=== PATIENT | male | born 1995 | race Two or more races ===

== ENCOUNTER → 2016-04-06 | Outpatient (REF) | payer BC ==
[2016-04-06 11:59] LABS: ANION GAP 7 MEQ/L (8-16); BLOOD UREA NITROGEN 11 MG/DL (7-18); CALCIUM LEVEL 9.2 MG/DL (8.5-10.1); CARBON DIOXIDE LEVEL 30 MEQ/L (21-32); CHLORIDE LEVEL 105 MEQ/L (98-107); CREATININE FOR GFR 0.85 MG/DL (0.70-1.30); GLOMERULAR FILTRATION RATE > 60.0 (>60); GLUCOSE, FASTING 156 MG/DL (70-105); POTASSIUM SERUM 4.3 MEQ/L (3.5-5.1); SODIUM LEVEL 142 MEQ/L (136-145)
== END ==
LOC: M SFHCPLAZ 08:51
PROVIDERS: ATTEND Family Medicine
DX: E10.3299 Type 1 diabetes mellitus with mild nonproliferative diabetic retinopathy without macular edema, unspecified eye (principal); F17.200 Nicotine dependence, unspecified, uncomplicated; Z23 Encounter for immunization

== ENCOUNTER → 2016-06-22 | Outpatient (REF) | payer BC | LOC: M SFHCPLAZ 09:19 | PROVIDERS: ATTEND Family Medicine | DX: E10.3292 Type 1 diabetes mellitus with mild nonproliferative diabetic retinopathy without macular edema, left eye (principal) ==

== ENCOUNTER → 2017-03-12 | Outpatient (REF) | payer BC ==
[2017-03-12 21:43] LABS: CALCIUM OXALATE CRYSTALS SMALL
== END ==
LOC: M LAB REF 12:43
PROVIDERS: ATTEND Physician Assistant
DX: R30.0 Dysuria (principal)

== ENCOUNTER 2017-06-17 20:24 | Emergency (ER) | payer BC ==
[2017-06-17] MEDS: ONDANSETRON 4MG/2ML VIAL (J2405) IV (20:49)
[2017-06-17] MEDS: MORPHINE 4 MG/ML 1ML VIAL (J2270) IV (20:50)
[2017-06-17] MEDS: KETOROLAC 30 MG/ML VIAL (J1885) IV (20:50)
[2017-06-17] MEDS: SILVER SULFADIAZINE 1% CR 50 GM JAR TOP (21:19)
[2017-06-17] MEDS: OXYCODONE/APAP 5MG/325MG(BULK FOR ED) 1 TABLET PO (21:27)
== END 2017-06-17 21:41 | disposition home or self-care (01) ==
LOC: M ED 20:24
DX: T23.101A Burn of first degree of right hand, unspecified site, initial encounter (principal); T23.271A Burn of second degree of right wrist, initial encounter; X10.2XXA Contact with fats and cooking oils, initial encounter; Y92.090 Kitchen in other non-institutional residence as the place of occurrence of the external cause; E10.9 Type 1 diabetes mellitus without complications; F17.200 Nicotine dependence, unspecified, uncomplicated
CPT/HCPCS: J2270

== ENCOUNTER → 2018-01-31 | Outpatient (CLI) | payer BC | LOC: M OUTALCOH 08:24 | DX: Z03.89 Encounter for observation for other suspected diseases and conditions ruled out (principal) ==

== ENCOUNTER 2018-02-07 09:57 | Outpatient (RCR) | payer BC | END 2018-02-17 | LOC: M OUTALCOH 09:57 | DX: Z03.89 Encounter for observation for other suspected diseases and conditions ruled out (principal) ==

== ENCOUNTER → 2018-10-03 | Outpatient (REF) | payer BC ==
[~2018-10-03] MED LIST: CLEO300C2 PO; INSUHUMDS; INSULANT; PERC5TAB12 PO; SILV1CRE60 TOP
[2018-10-03 16:03] LABS: BLOOD UREA NITROGEN 7 MG/DL (7-18); CALCIUM LEVEL 9.1 MG/DL (8.5-10.1); CARBON DIOXIDE LEVEL 28 MEQ/L (21-32); CHLORIDE LEVEL 106 MEQ/L (98-107); CREATININE FOR GFR 1.02 MG/DL (0.70-1.30); GLOMERULAR FILTRATION RATE > 60.0 (>60); GLUCOSE, FASTING 193 MG/DL (70-100); SODIUM LEVEL 139 MEQ/L (136-145)
[2018-10-03 16:15] LABS: VITAMIN B12 LEVEL 460 PG/ML (247-911)
[2018-10-03 17:05] LABS: MALB URINE SIEMENS 23.4 MG/L; MAU/CREAT RATIO 4.4 MCG/MG (0.0-30.0)
[2018-10-03 18:14] LABS: HEMOGLOBIN A1c 7.5 %
== END ==
LOC: M SFHCPLAZ 13:44
PROVIDERS: ATTEND Family Medicine
DX: E10.3299 Type 1 diabetes mellitus with mild nonproliferative diabetic retinopathy without macular edema, unspecified eye (principal); G62.9 Polyneuropathy, unspecified

== ENCOUNTER → 2019-02-05 | Outpatient (REF) | payer BC ==
[2019-02-05 18:20] LABS: ALBUMIN 4.1 GM/DL (3.2-5.2); ALT/SGPT 35 U/L (12-78); BILIRUBIN,TOTAL 0.6 MG/DL (0.2-1.0); BLOOD UREA NITROGEN 11 MG/DL (7-18); CALCIUM LEVEL 9.5 MG/DL (8.5-10.1); CARBON DIOXIDE LEVEL 31 MEQ/L (21-32); CHLORIDE LEVEL 97 MEQ/L (98-107); CREATININE FOR GFR 1.09 MG/DL (0.70-1.30); GLOMERULAR FILTRATION RATE > 60.0 (>60); GLUCOSE, FASTING 436 MG/DL (70-100); POTASSIUM SERUM 5.1 MEQ/L (3.5-5.1); SODIUM LEVEL 134 MEQ/L (136-145); TOTAL PROTEIN 7.4 GM/DL (6.4-8.2)
[2019-02-05 18:44] LABS: CREATININE, URINE 70.3 MG/DL; MALB URINE SIEMENS < 5.0 MG/L; MAU/CREAT RATIO 7.1 MCG/MG (0.0-30.0)
[2019-02-05 19:21] LABS: HEMOGLOBIN A1c 8.1 %
== END ==
LOC: M SFHCPLAZ 15:15
PROVIDERS: ATTEND Physician Assistant
DX: E10.65 Type 1 diabetes mellitus with hyperglycemia (principal)

== ENCOUNTER → 2020-02-28 | Outpatient (REF) | payer BC ==
[2020-02-28 15:48] LABS: BLOOD UREA NITROGEN 11 MG/DL (7-18); CALCIUM LEVEL 9.3 MG/DL (8.5-10.1); CARBON DIOXIDE LEVEL 31 MEQ/L (21-32); CHLORIDE LEVEL 108 MEQ/L (98-107); CREATININE FOR GFR 0.87 MG/DL (0.70-1.30); GLOMERULAR FILTRATION RATE > 60.0 (>60); GLUCOSE, FASTING 93 MG/DL (70-100); POTASSIUM SERUM 4.2 MEQ/L (3.5-5.1); SODIUM LEVEL 141 MEQ/L (136-145)
[2020-02-28 15:56] LABS: HEMOGLOBIN A1c 7.6 %
== END ==
LOC: M PLALAB 13:27
PROVIDERS: ATTEND Physician Assistant
DX: E10.3299 Type 1 diabetes mellitus with mild nonproliferative diabetic retinopathy without macular edema, unspecified eye (principal)

== ENCOUNTER → 2020-04-21 | Outpatient (REF) | payer BC | LOC: EEVIPCON 09:53 → M SFHCPLAZ 09:53 | PROVIDERS: ATTEND Physician Assistant | DX: L02.213 Cutaneous abscess of chest wall (principal) ==

== ENCOUNTER → 2020-07-04 | Outpatient (CLI) | payer BC | LOC: M LABSMTC 12:26 | PROVIDERS: ATTEND Family Medicine | DX: Z20.822 Contact with and (suspected) exposure to COVID-19 (principal) | CPT/HCPCS: C9803; U0003 ==

== ENCOUNTER → 2020-10-07 | Outpatient (CLI) | payer BC ==
[2020-10-07 17:01] LABS: MALB URINE SIEMENS 17.2 MG/L; MAU/CREAT RATIO 5.6 MCG/MG (0.0-30.0)
[2020-10-07 17:04] LABS: ALBUMIN 4.2 GM/DL (3.2-5.2); ALT/SGPT 31 U/L (12-78); BILIRUBIN,TOTAL 0.8 MG/DL (0.2-1.0); BLOOD UREA NITROGEN 13 MG/DL (7-18); CALCIUM LEVEL 9.2 MG/DL (8.5-10.1); CARBON DIOXIDE LEVEL 30 MEQ/L (21-32); CHLORIDE LEVEL 105 MEQ/L (98-107); CHOLESTEROL LEVEL 173 MG/DL (<200); CHOLESTEROL RISK RATIO 2.621 (<5); CREATININE FOR GFR 0.87 MG/DL (0.70-1.30); GLOMERULAR FILTRATION RATE > 60.0 (>60); GLUCOSE, FASTING 214 MG/DL (70-100); HDL CHOLESTEROL 66 MG/DL (>40); LDL CHOLESTEROL 95 MG/DL (<100); NON-HDL-C 107 MG/DL; POTASSIUM SERUM 4.4 MEQ/L (3.5-5.1); SODIUM LEVEL 138 MEQ/L (136-145); TOTAL PROTEIN 7.2 GM/DL (6.4-8.2); TRIGLYCERIDES LEVEL 58 MG/DL (<150)
[2020-10-07 17:29] LABS: HEMOGLOBIN A1c 7.8 %
== END ==
LOC: M PLALAB 12:01
PROVIDERS: ATTEND Physician Assistant
DX: E10.65 Type 1 diabetes mellitus with hyperglycemia (principal)

== ENCOUNTER → 2022-04-05 | Outpatient (CLI) | payer BC ==
[2022-04-05 17:43] LABS: HEMATOCRIT 47.8 % (42.0-52.0); HEMOGLOBIN 15.3 g/dl (13.5-17.5); MEAN CORPUSCULAR VOLUME 84.5 fl (80.0-96.0); PLATELET COUNT, AUTOMATED 224 10^3/uL (150-450); RED BLOOD COUNT 5.66 10^6/uL (4.30-6.10); WHITE BLOOD COUNT 4.2 10^3/uL (4.0-10.0)
[2022-04-05 17:59] LABS: HEMOGLOBIN A1c 9.7 % (4.0-6.0)
[2022-04-05 18:16] LABS: C REACTIVE PROTEIN QUANTITATIV < 0.40 MG/DL (<1.0); FREE T4 1.19 NG/DL (0.89-1.76); THYROID STIMULATING HORMONE 0.515 uIU/ML (0.55-4.78)
[2022-04-05 18:17] LABS: ALBUMIN 3.9 G/DL (3.2-5.2); ALKALINE PHOSPHATASE 87 U/L (46-116); ALT/SGPT 21 U/L (7.0-40); AST/SGOT 14 U/L (<34); BILIRUBIN,TOTAL 0.7 MG/DL (0.3-1.2); BLOOD UREA NITROGEN 11 MG/DL (9-23); CALCIUM LEVEL 9.1 MG/DL (8.5-10.1); CARBON DIOXIDE LEVEL 29 MMOL/L (20-31); CHLORIDE LEVEL 105 MMOL/L (98-107); CHOLESTEROL LEVEL 153 MG/DL (<200); CHOLESTEROL RISK RATIO 2.52 (<5); GLOMERULAR FILTRATION RATE > 60.0 (>60); GLUCOSE, FASTING 151 MG/DL (60-100); HDL CHOLESTEROL 60.6 MG/DL (>40); NON-HDL-C 92 MG/DL; POTASSIUM SERUM 4.5 MMOL/L (3.5-5.1); SODIUM LEVEL 141 MMOL/L (136-145); TOTAL 25(OH) VITAMIN D 17.3 NG/ML (20.0-100.0); TOTAL PROTEIN 6.5 G/DL (5.7-8.2); TRIGLYCERIDES LEVEL 27 MG/DL (<150)
[2022-04-05 18:18] LABS: VITAMIN B12 LEVEL 760 PG/ML (211-911)
[2022-04-05 18:25] LABS: CREATININE, URINE 254.9 MG/DL; MAU/CREAT RATIO 2.3 MCG/MG (0.0-30.0)
== END ==
LOC: M PLALAB 14:14
PROVIDERS: ATTEND Internal Medicine Hematology
DX: E10.65 Type 1 diabetes mellitus with hyperglycemia (principal)

== ENCOUNTER → 2023-07-07 | Outpatient (CLI) | payer BC, SELFPAY ==
[2023-07-07 15:49] LABS: HEMATOCRIT 43.9 % (42.0-52.0); HEMOGLOBIN 14.2 g/dl (13.5-17.5); MEAN CORPUSCULAR HEMOGLOBIN 27.6 pg (27.0-33.0); MEAN CORPUSCULAR HGB CONC 32.3 g/dl (32.0-36.5); MEAN CORPUSCULAR VOLUME 85.4 fl (80.0-96.0); PLATELET COUNT, AUTOMATED 219 10^3/uL (150-450); RED BLOOD COUNT 5.14 10^6/uL (4.30-6.10); WHITE BLOOD COUNT 6.9 10^3/uL (4.0-10.0)
[2023-07-07 16:09] LABS: HEMOGLOBIN A1c 9.4 % (4.0-6.0)
[2023-07-07 16:17] LABS: CREATININE, URINE 96.9 MG/DL; MALB URINE SIEMENS < 3.0 MG/L
[2023-07-07 16:18] LABS: C REACTIVE PROTEIN QUANTITATIV < 0.40 MG/DL (<1.0)
[2023-07-07 16:19] LABS: ALBUMIN 3.7 G/DL (3.2-5.2); ALKALINE PHOSPHATASE 82 U/L (46-116); ALT/SGPT 11 U/L (7.0-40); AST/SGOT 11 U/L (<34); BILIRUBIN,TOTAL 0.5 MG/DL (0.3-1.2); BLOOD UREA NITROGEN 11 MG/DL (9-23); CALCIUM LEVEL 9.5 MG/DL (8.5-10.1); CARBON DIOXIDE LEVEL 30 MMOL/L (20-31); CHLORIDE LEVEL 104 MMOL/L (98-107); CHOLESTEROL LEVEL 128 MG/DL (<200); CHOLESTEROL RISK RATIO 2.16 (<5); CREATININE FOR GFR 0.95 MG/DL (0.70-1.30); FREE T4 1.17 NG/DL (0.89-1.76); GLOMERULAR FILTRATION RATE > 60.0 (>60); GLUCOSE, FASTING 338 MG/DL (60-100); LDL CHOLESTEROL 56.2 MG/DL (<100); POTASSIUM SERUM 4.6 MMOL/L (3.5-5.1); SODIUM LEVEL 138 MMOL/L (136-145); THYROID STIMULATING HORMONE 0.517 uIU/ML (0.55-4.78); TOTAL 25(OH) VITAMIN D 10.4 NG/ML (20.0-100.0); TOTAL PROTEIN 6.3 G/DL (5.7-8.2); TRIGLYCERIDES LEVEL 64 MG/DL (<150)
[2023-07-07 16:21] LABS: VITAMIN B12 LEVEL 835 PG/ML (211-911)
== END ==
LOC: M PLALAB 12:11
PROVIDERS: ATTEND Internal Medicine Hematology
DX: E10.65 Type 1 diabetes mellitus with hyperglycemia (principal)

== ENCOUNTER 2024-04-12 17:14 | Inpatient (IN) | payer BC, SELFPAY ==
[~2024-04-12] VITALS: Ht 172.7 cm; Wt 71.1 kg
[~2024-04-12 17:14] MED LIST changes: -INSULANT; +INSULANT INJ
[2024-04-12] MEDS: NS (Normal Saline) 0.9% 1,000 ML IV ONE (18:00)
[2024-04-12 18:34] LABS: BASO % 0.5 % (0.0-1.0); EOS # 0.1 10^3/uL (0.0-0.5); EOS % 1.9 % (0.0-3.0); HEMATOCRIT 43.2 % (42.0-52.0); HEMOGLOBIN 14.6 g/dl (13.5-17.5); LYMPH # 1.8 10^3/uL (1.5-5.0); LYMPH % 24.7 % (24.0-44.0); MEAN CORPUSCULAR HEMOGLOBIN 27.6 pg (27.0-33.0); MEAN CORPUSCULAR HGB CONC 33.8 g/dl (32.0-36.5); MEAN CORPUSCULAR VOLUME 81.7 fl (80.0-96.0); MONO # 0.6 10^3/uL (0.0-0.8); MONO % 8.2 % (2.0-8.0); NEUTROPHILS # 4.8 10^3/uL (1.5-8.5); NEUTROPHILS % 64.4 % (36.0-66.0); PLATELET COUNT, AUTOMATED 244 10^3/uL (150-450); RED BLOOD COUNT 5.29 10^6/uL (4.30-6.10); WHITE BLOOD COUNT 7.5 10^3/uL (4.0-10.0)
[2024-04-12 18:58] LABS: LIPASE 26 U/L (12-53)
[2024-04-12 19:00] LABS: ACETONE/KETONE 0.14 MMOL/L (0.02-0.27)
[2024-04-12 19:19] LABS: ALBUMIN 3.6 G/DL (3.2-5.2); ALKALINE PHOSPHATASE 94 U/L (40-129); ALT/SGPT 15 U/L (7.0-40); AST/SGOT 14 U/L (<34); BILIRUBIN,DIRECT 0.2 MG/DL (<0.4); BILIRUBIN,TOTAL 0.6 MG/DL (0.3-1.2); BLOOD UREA NITROGEN 15 MG/DL (9-23); CALCIUM LEVEL 9.4 MG/DL (8.5-10.1); CARBON DIOXIDE LEVEL 29 MMOL/L (20-31); CHLORIDE LEVEL 101 MMOL/L (98-107); CK-MB VALUE MASS < 1.0 NG/ML (<3.6); CPK CREATINE PHOSPHOKINASE 262 U/L (46-171); CREATININE FOR GFR 0.74 MG/DL (0.70-1.30); GLOMERULAR FILTRATION RATE > 60.0 (>60); GLUCOSE, FASTING 408 MG/DL (60-100); MB/CK RELATIVE INDEX 0.38 (< OR =4); POTASSIUM SERUM 4.3 MMOL/L (3.5-5.1); SODIUM LEVEL 136 MMOL/L (136-145); TOTAL PROTEIN 6.7 G/DL (5.7-8.2)
[2024-04-12 19:46] LABS: APPEARANCE, URINE CLEAR (CLEAR); BACTERIA, URINE AUTO NEGATIVE (NEGATIVE); BILIRUBIN, URINE AUTO NEGATIVE (NEGATIVE); BLOOD, URINE BLOOD NEGATIVE (NEGATIVE); COLOR, URINE YELLOW (YELLOW); GLUCOSE, URINE (UA) AUTO 3+ mg/dL (NEGATIVE); KETONE, URINE AUTO NEGATIVE (NEGATIVE); LEUKOCYTE ESTERASE, URINE AUTO NEGATIVE (NEGATIVE); MUCUS, URINE SMALL (NEGATIVE); NITRITE, URINE AUTO NEGATIVE (NEGATIVE); PROTEIN, URINE AUTO NEGATIVE (NEGATIVE); RBC, URINE AUTO 0 /HPF (0-3); SPECIFIC GRAVITY URINE AUTO 1.037 (1.002-1.035); SQUAMOUS EPITHELIAL CELL UR AU 0 /HPF (0-6); WBC, URINE AUTO 0 /HPF (0-3)
[2024-04-12 20:02] LABS: AMPHETAMINES LEVEL URINE NEGATIVE (NEGATIVE); BARBITURATES URINE NEGATIVE (NEGATIVE)
[2024-04-12 20:03] LABS: BENZODIAZEPINES URINE NEGATIVE (NEGATIVE); CANNABINOIDS URINE NEGATIVE (NEGATIVE); COCAINE METABOLITE URINE NEGATIVE (NEGATIVE); METHADONE URINE NEGATIVE (NEGATIVE); OPIATES URINE NEGATIVE (NEGATIVE); PHENCYCLIDINE URINE NEGATIVE (NEGATIVE)
[2024-04-12] MEDS: diphenhydrAMINE 50MG/ML VIAL IM ONE (21:10)
[2024-04-12] MEDS: LORazepam 2 MG/ML 1ML VIAL IM STA (21:10)
[2024-04-12] MEDS: OLANZapine INTRAMUSCULAR 10MG VIAL IM ONE (21:10)
[2024-04-12 22:27] LABS: ETHYL ALCOHOL (ETHANOL) < 0.003 % (0.000-0.010)
[2024-04-12 22:28] LABS: SALICYLATE LEVEL < 3.0 MG/DL (<30)
[2024-04-12 22:31] LABS: THYROID STIMULATING HORMONE 0.333 uIU/ML (0.55-4.78)
[2024-04-12] MEDS ORDERED: HumuLIN R (REGULAR) INSULIN (NovoLIN R) **100U/ML** PER UNIT IV ONE (22:55)
[2024-04-13] MEDS ORDERED: INSU100V6 INJ (00:29)
[2024-04-13] MEDS ORDERED: MED REC IN PROGRESS XX SCH (00:30)
[2024-04-13] MEDS: INSULIN LISPRO (NovoLOG) PER UNIT SC SCH ×3 (07:27→22:29)
[2024-04-13] MEDS ORDERED: HOME MED LIST COMPLETE! XX SCH (08:25)
[2024-04-13] MEDS ORDERED: GLUCAGON INJ 1MG VIAL SC PRN (17:55)
[2024-04-13] MEDS ORDERED: GLUCOSE 4 GM CHEW PO PRN (17:55)
[2024-04-13] MEDS ORDERED: DEXTROSE 50% 50ML SYRINGE IV PRN (17:55)
[2024-04-13] MEDS: INSULIN LISPRO (NovoLOG) PER UNIT SC ONE (18:11)
[2024-04-13] MEDS ORDERED: diphenhydrAMINE 25MG CAP PO PRN (19:40)
[2024-04-13] MEDS ORDERED: IBUPROFEN 400MG TAB PO PRN (19:40)
[2024-04-13] MEDS ORDERED: MOM 30ML SUSPENSION UDC PO PRN (19:40)
[2024-04-13] MEDS ORDERED: ACETAMINOPHEN 325 MG TAB PO PRN (19:40)
[2024-04-13] MEDS ORDERED: traZODone 50 MG TAB PO PRN (19:40)
[2024-04-13] MEDS ORDERED: MAALOX 30 ML SUSP *UDC PO PRN (19:40)
[2024-04-13] MEDS ORDERED: OLANZapine ORAL DISINTEGRATING TAB 5MG PO PRN (19:40)
[2024-04-13] MEDS ORDERED: INSULIN LISPRO (NovoLOG) PER UNIT SC SCH (21:00)
[2024-04-13] MEDS: INSULIN LISPRO (NovoLOG) PER UNIT SC STA (21:16)
[2024-04-14] MEDS: LEVEMIR (INSULIN DETEMIR) 1 UNITS/0.01ML SC SCH (05:05)
[2024-04-14 06:37] VITALS: BP 160/98; TEMP 98.2; O2SAT 96
[2024-04-14] MEDS: INSULIN LISPRO (NovoLOG) PER UNIT SC SCH ×2 (06:48→13:19)
[2024-04-14 07:41] LABS: VENOUS BASE EXCESS 0.9 (-2.0-2.0); VENOUS HCO3 24.8 MMOL/L (23.0-27.0); VENOUS PARTIAL PRESSURE CO2 37.2 mmHg (38.0-50.0); VENOUS PARTIAL PRESSURE O2 87.4 mmHg (30.0-50.0); VENOUS PH 7.441 UNITS (7.330-7.430); VENOUS STANDARD HCO3 25.3 MMOL/L; VENOUS TOTAL CO2 25.9 MMOL/L (24.0-28.0)
[2024-04-14 07:48] LABS: HEMATOCRIT 39.5 % (42.0-52.0); HEMOGLOBIN 13.5 g/dl (13.5-17.5); MEAN CORPUSCULAR HEMOGLOBIN 27.7 pg (27.0-33.0); MEAN CORPUSCULAR HGB CONC 34.2 g/dl (32.0-36.5); MEAN CORPUSCULAR VOLUME 80.9 fl (80.0-96.0); PLATELET COUNT, AUTOMATED 209 10^3/uL (150-450); RED BLOOD COUNT 4.88 10^6/uL (4.30-6.10); WHITE BLOOD COUNT 6.5 10^3/uL (4.0-10.0)
[2024-04-14 08:11] LABS: ALBUMIN 3.4 G/DL (3.2-5.2); ALKALINE PHOSPHATASE 97 U/L (40-129); ALT/SGPT 18 U/L (7.0-40); AST/SGOT 17 U/L (<34); BILIRUBIN,TOTAL 0.5 MG/DL (0.3-1.2); BLOOD UREA NITROGEN 22 MG/DL (9-23); CARBON DIOXIDE LEVEL 26 MMOL/L (20-31); CHLORIDE LEVEL 99 MMOL/L (98-107); CREATININE FOR GFR 0.83 MG/DL (0.70-1.30); GLOMERULAR FILTRATION RATE > 60.0 (>60); GLUCOSE, FASTING 459 MG/DL (60-100); POTASSIUM SERUM 5.2 MMOL/L (3.5-5.1); SODIUM LEVEL 134 MMOL/L (136-145); TOTAL PROTEIN 6.1 G/DL (5.7-8.2)
[2024-04-14] MEDS: NICOTINE 14 MG/24 HR TRANSDERMAL TD SCH (09:00)
[2024-04-14] MEDS ORDERED: INSULIN PUMP (PATIENT'S OWN MED) XX SCH (10:45)
[2024-04-14] MEDS ORDERED: LEVEMIR (INSULIN DETEMIR) 1 UNITS/0.01ML SC SCH (12:00)
[2024-04-14] MEDS ORDERED: INSULIN LISPRO XX SCH (15:50)
[2024-04-14 17:02] LABS: BLOOD UREA NITROGEN 24 MG/DL (9-23); CALCIUM LEVEL 9.4 MG/DL (8.5-10.1); CARBON DIOXIDE LEVEL 29 MMOL/L (20-31); CHLORIDE LEVEL 105 MMOL/L (98-107); CREATININE FOR GFR 0.83 MG/DL (0.70-1.30); GLOMERULAR FILTRATION RATE > 60.0 (>60); GLUCOSE, FASTING 251 MG/DL (60-100); POTASSIUM SERUM 4.5 MMOL/L (3.5-5.1); SODIUM LEVEL 140 MMOL/L (136-145)
[2024-04-15] MEDS: INSULIN LISPRO (NovoLOG) PER UNIT SC SCH (09:00)
[2024-04-15] MEDS: LEVEMIR (INSULIN DETEMIR) 1 UNITS/0.01ML SC SCH (09:00)
[2024-04-15] MEDS ORDERED: DIPH-435 PO (11:07)
[2024-04-15] MEDS ORDERED: OLAN5ZYD PO (11:07)
[2024-04-15] MEDS ORDERED: TRAZ-252 PO (11:07)
== END 2024-04-15 12:47 | disposition short-term general hospital (02) | DRG 751 ==
LOC: M ED 17:14 → EEVIPCON 17:14 → M ED INP 04-13 13:19 → M PSY 04-13 14:41
PROVIDERS: ADMIT Psychiatry & Neurology Psychiatry; ATTEND Psychiatry & Neurology Psychiatry
DX: F29 Unspecified psychosis not due to a substance or known physiological condition (principal); Z79.4 Long term (current) use of insulin; F10.10 Alcohol abuse, uncomplicated; E10.65 Type 1 diabetes mellitus with hyperglycemia

== ENCOUNTER 2024-04-15 12:10 | Observation (INO) | payer SELFPAY ==
[~2024-04-15 12:10] MED LIST changes: +DIPH-435 PO; +INSU100V6 INJ; +OLAN5ZYD PO; +TRAZ-252 PO
[2024-04-15] MEDS ORDERED: ACETAMINOPHEN 325 MG TAB PO PRN (12:35)
[2024-04-15] MEDS ORDERED: GLUCAGON INJ 1MG VIAL SC PRN (12:50)
[2024-04-15] MEDS ORDERED: DEXTROSE 50% 50ML SYRINGE IV PRN (12:50)
[2024-04-15] MEDS ORDERED: GLUCOSE 4 GM CHEW PO PRN (12:50)
[2024-04-15] MEDS ORDERED: INSULIN LISPRO XX SCH (12:55)
[2024-04-15] MEDS ORDERED: INSULIN PUMP (PATIENT'S OWN MED) XX SCH (12:55)
[2024-04-15 13:00] VITALS: BP 105/70; TEMP 97.7; O2SAT 98
[2024-04-15 20:00] VITALS: BP 116/62; TEMP 98.3; O2SAT 99
[2024-04-16 04:15] VITALS: BP_SYST 103; BP_SYST 106; BP_DIAS 65; BP_DIAS 66; TEMP 98.1; O2SAT 98
[2024-04-16 11:45] VITALS: BP 106/64; TEMP 97.7; O2SAT 95
[2024-04-16 16:00] LABS: HEMOGLOBIN A1c 9.4 % (4.0-6.0)
== END 2024-04-16 18:22 | disposition home or self-care (01) ==
LOC: INTOOBSV 13:01 → M MSPAV 13:01
PROVIDERS: ADMIT Internal Medicine; ATTEND Internal Medicine
DX: T85.694A Other mechanical complication of insulin pump, initial encounter (principal); T38.3X6A Underdosing of insulin and oral hypoglycemic [antidiabetic] drugs, initial encounter; Y82.8 Other medical devices associated with adverse incidents; E10.65 Type 1 diabetes mellitus with hyperglycemia; F23 Brief psychotic disorder; F41.8 Other specified anxiety disorders; F17.210 Nicotine dependence, cigarettes, uncomplicated; R10.9 Unspecified abdominal pain; E87.5 Hyperkalemia; Z79.899 Other long term (current) drug therapy; Z96.41 Presence of insulin pump (external) (internal)

== ENCOUNTER → 2024-12-07 | Outpatient (CLI) | payer OTHER ==
[2024-12-07 18:15] LABS: PLATELET COUNT, AUTOMATED 251 10^3/uL (150-450)
[2024-12-07 18:21] LABS: ALT/SGPT 12 U/L (7.0-40); AST/SGOT 12 U/L (<34); CALCIUM LEVEL 9.5 MG/DL (8.5-10.1); CARBON DIOXIDE LEVEL 26 MMOL/L (20-31); CHLORIDE LEVEL 106 MMOL/L (98-107); CHOLESTEROL LEVEL 178 MG/DL (<200); CHOLESTEROL RISK RATIO 2.50 (<5); CREATININE FOR GFR 0.82 MG/DL (0.70-1.30); GLOMERULAR FILTRATION RATE > 90.0 (>60); LDL CHOLESTEROL 80.6 MG/DL (<100); NON-HDL-C 106.8 MG/DL; POTASSIUM SERUM 4.2 MMOL/L (3.5-5.1); SODIUM LEVEL 140 MMOL/L (136-145); TRIGLYCERIDES LEVEL 131 MG/DL (<150)
[2024-12-07 18:36] LABS: ESTIMATED AVERAGE GLUCOSE 223.0 MG/DL (60-110)
== END ==
LOC: M PLALAB 12:14
PROVIDERS: ATTEND Family Medicine
DX: E10.65 Type 1 diabetes mellitus with hyperglycemia (principal)

== ENCOUNTER → 2024-12-07 | Outpatient (REF) | payer OTHER | LOC: M SFHCPLAZ 12:01 | PROVIDERS: ATTEND Family Medicine | DX: Z53.9 Procedure and treatment not carried out, unspecified reason (principal) ==